=== PATIENT | male | born 1965 | race Caucasian/White ===

== ENCOUNTER → 2018-08-06 17:30 | Outpatient (CLI) | payer OTHER, SELFPAY | PROVIDERS: PCP Family Medicine; Visit Provider Family Medicine | DX: G47.33 Obstructive sleep apnea (adult) (pediatric) (principal); R06.83 Snoring; R53.83 Other fatigue; E66.9 Obesity, unspecified ==

== ENCOUNTER → 2018-11-29 16:12 | Outpatient (CLI) | payer OTHER, SELFPAY ==
--- NOTE | 2018-11-29 16:17 | XR_ITS ---
XR foot LT min 3V HISTORY: ITS.REASON: PAIN OF LEFT HEEL ORDERING PHYSICIAN: Rudolph Gentile MD PATIENT AGE: 53 years COMPARISON: None FINDINGS: No fracture or dislocation. No lytic or blastic change. There is normal mineralization.. The joint spaces are well-preserved. No significant degenerative/arthritic changes. No erosive changes evident. IMPRESSION: Negative, no acute finding
== END ==
PROVIDERS: PCP Family Medicine; Visit Provider Family Medicine
DX: M79.672 Pain in left foot (principal)
CPT/HCPCS: 73630

== ENCOUNTER 2025-02-06 09:16 | Outpatient (CLI) | payer OTHER, SELFPAY ==
--- OUTSIDE RECORDS SUMMARY | 2024-11-27 10:00 | XMS_ITS ---
Author Organization Misa Address 1210 [facility] [address] [place] [id number] Care Team Providers Care Hot Metal Mixer Operator Helper Name Role Phone Rudolph Gentile Primary Care Provider [phone] Allergies No Known Allergies REASON FOR VISIT new patient Medications Medication SIG (Take, Route, Frequency, Duration) Notes Start Date End Date Status Meloxicam 15 MG 1 tab(s) orally once a day Active Allopurinol 100 MG 1 tab(s) orally once a day Active Montelukast Sodium 10 MG 1 tab(s) orally once a day Active Problems Problem Type SNOMED Code ICD Code Onset Dates Problem Status W/U Status Risk Notes Problem Solitary nodule of lung (135553803) Lung nodule (R91.1) Active confirmed Problem Malignant tumor of prostate (291461766) Prostate cancer (C61) Active confirmed Vital Signs Blood pressure systolic 116 mm Hg 11/28/19 25 Blood pressure diastolic 80 mm Hg 025 Heart Rate 60 /min 11/27/2024 Height 70.25 in 11/27/2024 Weight 230.4 lbs 11/27/2024 BMI 32.82 kg/m2 11/27/2024 Encounters Encounter Location Date Provider Diagnosis Misa [address] [place] [facility] 36 [facility] [address] [place] [id number] 11/27/2024 Rudolph Gentile Lung nodule R91.1 ; Prostate cancer C61 ; Chronic gout without tophus, unspecified cause, unspecified site M1A.9XX0 and Chronic allergic rhinitis, unspecified seasonality, unspecified trigger J30.9 Assessments Encounter Date Diagnosis (ICD Code) Assessment Notes Treatment Notes Treatment Clinical Notes Section Notes 11/27/2024 Lung nodule (ICD-10 - R91.1) Need results of recent CT scan of chest, repeat was planned for the end of 2024 11/27/2024 Prostate cancer (ICD-10 - C61) PSA needs to be drawn in about 1 month, need records 11/27/2024 Chronic gout without tophus, unspecified cause, unspecified site (ICD-10 - M1A.9XX0) 11/27/2024 Chronic allergic rhinitis, unspecified seasonality, unspecified trigger (ICD-10 - J30.9) Plan Of Treatment Medication Medication Name Sig Start Date Stop Date Notes Meloxicam 15 MG 1 tab(s) orally once a day Allopurinol 100 MG 1 tab(s) orally once a day Montelukast Sodium 10 MG 1 tab(s) orally once a day Treatment Notes Assessment Notes Lung nodule Need results of rece nt CT scan of chest, repeat was planned for the end of 2024 Prostate cancer PSA needs to be draw n in about 1 month, need records Next Appt Details Follow Up: 4 Weeks nurse vis it, 6 weeks, Reason: Provider Name:Rudolph Lainez , 07/08/2025 10:00:00 AM, [address] [place] [facility] 36 [facility], [address], [place], [place], [id number], Progress Notes * ELIAN PEACEDOB:1965 (60 yo M)Acc No.[id number]:11/27/2024 Progress Notes Patient: ELIAN WOODSON Provider: Stanley Gentile M.D. :1965 A ge:59 Y S ex:Male Date:11/27/2024 Address:[address] [place], [place] [phone] Subjective: * Chief Complaints: * 1 . New patient. * HPI: H PI: 59 year old male presents with c/o Patient is here today for?Pt here to establish care. Pt was previously seen by Jessica Whitman in [place]. Pt states he was dx w ith prostate cancer and needs to have blood drawn today. * ROS: D ERMATOLOGY: no R osiel. n o H jamia. G ASTROENTEROLOGY: no N ausea. n o V omiting. U ROLOGY: no D ifficulty urinating. n o B lood in urine. * Medical History: A llergic Rhinitis, Hyperlipidemia, Gout, Prostate Cancer, Dx: 2024, treated at [facility] in [place], [place], Kidney stones. * Surgical History: P rostatectomy 08/08/2024. * Hospitalization/Major Diagno stic Procedure: D enies Past Hospitalization. * Family History: F ather: alive. M other: alive. 1 brother(s) , 2 sister(s) - healthy. 1 son(s) , 1 daughter(s) - healthy. . * Social History: C URRENT TOBACCO USE: No . C affeine: yes, frequency: coffee. Home smoke detector use: no. Marital Status: Single. Alcohol: No. 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 Pt sts that he still attends meetings regularly. * Medications: T aking Montelukast Sodium 10 MG Tablet 1 tab(s) orally once a day , Taking Meloxicam 15 MG Tablet 1 tab(s) orally once a day , Taking Allopurinol 100 MG Tablet 1 tab(s) orally once a day , Discontinued Clotrimazole 1 % Cream 1 yuridia applied topically 3 times a day , Discontinued ZyrTEC Allergy 10 MG Tablet 1 tab(s) orally once a day , Discontinued Phentermine HCl 15 MG Capsule 1 cap(s) orally once a day (in the morning) , Medication List reviewed and reconciled with the patient * Allergies: N .K.D.A. Objective: * Vitals: W t: 230.4, Temp: 97.7, BP: 116/80, HR: 60, Nurse: pe, Ht: 70.25, BMI:32.82. * Examination: G eneral Examination: General Appearance: N AD. H EENT: u nremarkable.?Oral cavity: n o lesions, mucosa moist and WNL, no erythema. N janelle: s upple, no lymphadenopathy. H eart: R SR. L ungs: c lear to auscultation. S kin: n ormal, no rash. P eripheral pulses: n ormal (2+) bilaterally. E xtremities: n o leg edema.? Assessment: * Assessment: 1. L krissy nodule - R91.1 (Primary) 2 . P rostate cancer - C61 ?3. C hronic gout without tophus, unspecified cause, unspecified site - M1A.9XX0 ?4. C hronic allergic rhinitis, unspecified seasonality, unspecified trigger - J30.9 ? Plan: * Treatment: 2. P rostate cancer Notes: PSA needs to be drawn in about 1 month, need records 3. C hronic gout without tophus, unspecified cause, unspecified site Continue Meloxicam Tablet, 15 MG, 1 tab(s), orally, once a day; C ontinue Allopurinol Tablet, 100 MG, 1 tab(s), orally, once a day. 4. C hronic allergic rhinitis, unspecified seasonality, unspecified trigger Continue Montelukast Sodium Tablet, 10 MG, 1 tab(s), orally, once a day. * Procedure Codes: 1 036F TOBACCO NON-USER, 3074F SYST BP LT 130 MM HG, 3079F DIAST BP 80-89 MM HG * Follow Up: 4 Weeks nurse visit, 6 weeks * Images: Billing Information: * Visit Code: 98960 Office Visit, New Pt., Level 3. * Procedure Codes: 1036F TOBACCO NON-USER. 3074F SYST BP LT 130 MM HG. 3079F DIAST BP 80-89 MM HG. * Electronic signature of Catie Gentile MD on 02/06/2025 at 09:26 AM EDT Sign off status: Pending * Provider: Stanley Gentile M.D. Date: 0 11/27/2024 Generated for Reny helton/Kendra/Adelsoitting on: 09:26 AM EDT History and Physical Notes * HPI (History of Present Illness) Category Sub-Category Detail Notes Category Not es HPI Patient is here today for Pt her e to establish care. Pt was previously seen by Jessica Whitman in [place]. Pt states he was dx with prostate cancer and needs to have blood drawn today Examination Category Sub-Category Detail Notes Category Not es General Examination HEENT: unremarkable Heart: RSR Lungs: clear to auscultatio n Extremities: no leg edema General Appearance: NAD Skin: normal, no rash Neck: supple, no lymphaden opathy Oral cavity: no lesions, mucosa m oist and WNL, no erythema Peripheral pulses: normal (2+) bilatera lly
--- OUTSIDE RECORDS SUMMARY | 2024-12-25 04:50 | XMS_ITS ---
[facility] [address] [place] [address] [facility] [address] [place] [id number] Care Team Providers Care Director Of Labor Relations Name Role Phone Marivel Gentileian Primary Care Provider Allergies No Known Allergies Results Component Value Reference Range Notes P-Comprehensive Metabolic Pa janet (CMP) Reviewed date:12/26/2024 11:35:01 AM Interpretation:Glu 165 Performing Lab: Notes/Report: Test performed by [facility] [address] , [address], [place] [address] Arnie Diaz MD, Lime Kiln Worker CLIA: [id number] Sodium 143 135-145 mmol/L Potassium 4.5 3.5-5.3 mmol/L Chloride 105 97-108 mmol/L CO2 24 20-32 mmol/L Glucose 165 65-99 mg/dL BUN 22 8-23 mg/dL Creatinine 0.87 0.70-1.30 mg/dL Calcium 9.3 8.6-10.4 mg/dL eGFR by Creatinine 98 >59 mL/min/1.73m2 Protein 7.7 6.0-8.3 g/dL Albumin 4.6 3.5-5.3 g/dL Alkaline Phosphatase 68 40-129 IU/L ALT (SGPT) 32 <5-55 IU/L AST (SGOT) 26 <5-46 IU/L Bilirubin, Total 0.4 <0.2-1.2 mg/dL A/G Ratio 1.5 1.1-2.5 P-Lipid Panel Reviewed date:12/26/2024 11:35:01 AM Interpretation:Trigs 332, HDL 28, Chol/HDL 7.11, Non-HDL 171, LDL/HDL 3.7 Performing Lab: Notes/Report: Test performed by [facility] [address] [facility] , [address], [place] [address] Arnie Diaz MD, Lime Kiln Worker CLIA: [id number] Cholesterol 199 <200 mg/dL Triglycerides 332 <150 mg/dL HDL Cholesterol 28 >39 mg/dL Cholesterol / HDL Ratio 7.11 0.00-4.99 Ratio Non-HDL Cholesterol 171 <130 mg/dL LDL Cholesterol (Calculation) 105 <130 mg/dL LDL Cholesterol Levels* Less than 100 mg/dL Optimal 100 to 129 mg/dL Near Optimal/ Above Optimal 130 to 159 mg/dL Borderline High 160 to 189 mg/dL High 190 mg/dL and above Very High * Categories as recommended by the 2004 ATPIII guidelines LDL/HDL Ratio 3.7 <3.3 Ratio LDL Cholesterol Patient History Test Date: 02/28/2022 LDL Results: 116 Units: mg/dL % Change: - Test Date: 12/25/2024 LDL Results: 105 Units: mg/dL % Change: -9% P-PSA Reviewed date:12/26/2024 11:35:01 AM Interpretation:Normal Performing Lab: Notes/Report: Test performed by [facility] [address] , [place] [address] Arnie Diaz MD, Lime Kiln Worker CLIA: [id number] PSA <0.014 <4.00 ng/mL Please note this is an ultrasensitive PSA assay with a lower limit of detection of 0.014 ng/mL. This test is performed by the [place] ECLIA methodology. Values obtained with different assay methods or kits cannot be directly compared. P-TSH reflex to FT4 Reviewed date:12/26/2024 11:35:01 AM Interpretation:Normal Performing Lab: Notes/Report: Test performed by [facility] [address], [place] [address] Arnie Diaz MD, Lime Kiln Worker CLIA: [id number] TSH reflex to FT4 4.26 0.43-5.25 mU/L P-Uric Acid Reviewed date:12/26/2024 11:35:01 AM Interpretation:Normal Performing Lab: Notes/Report: Test performed by [facility] [address], [place] [address] Arnie Diaz MD, Lime Kiln Worker CLIA: [id number] Uric Acid 6.4 3.4-8.0 mg/dL REASON FOR VISIT blood work Medications Medication SIG (Take, Route, Frequency, Duration) Notes Start Date End Date Status Baclofen 10 MG 1 tablet Orally Twice a day As needed 12/02/2024 Active Montelukast Sodium 10 MG 1 tab(s) orally once a day; Duration: 30 days Active Meloxicam 15 MG 1 tab(s) orally once a day; Duration: 30 days Active Allopurinol 100 MG 1 tab(s) orally once a day; Duration: 30 days Active Vital Signs Height 70.25 in 12/25/2024 Encounters Encounter Location Date Provider Diagnosis A-Leobardo 1210 [facility] [address] [place], [place] [id number] 12/25/2024 Rudolph Gentile Prostate cancer C61 ; Pure hypercholesterolemia E78.00 and Chronic gout without tophus, unspecified cause, unspecified site M1A.9XX0 Assessments Encounter Date Diagnosis (ICD Code) Assessment Notes Treatment Notes Treatment Clinical Notes Section Notes 12/25/2024 Prostate cancer (ICD -10 - C61) 12/25/2024 Pure hypercholesterolemia (ICD-10 - E78.00) 12/25/2024 Chronic gout without tophus, unspecified cause, unspecified site (ICD-10 - M1A.9XX0) Plan Of Treatment Next Appt Details Provider Name:Rudolph Lainez ry, 07/08/2025 10:00:00 AM, [address] [place] [facility] 36 [facility], [address] , [place], [place], [phone], Progress Notes * ELIAN PEACEDOB:1965 (60 yo M)Acc No.[id number]:12/25/2024 Patient: ELIAN WOODSON Provider: Stanley Gentile M.D. :1965 A ge:59 Y S ex:Male Date:12/25/2024 Address:[address] [place] [address] Subjective: * Chief Complaints: * 1 . Blood work. * ROS: D ERMATOLOGY: no R osiel. n o H jamia. G ASTROENTEROLOGY: no N ausea. n o V omiting. n o D iarrhea.? U ROLOGY: no D ifficulty urinating. n o B lood in urine. * Medical History: A llergic Rhinitis, Hyperlipidemia, Gout, Prostate Cancer, Dx: 2024, treated at [facility] in [place], [place], Kidney stones. * Medications: T aking Allopurinol 100 MG Tablet 1 tab(s) orally once a day , Taking Meloxicam 15 MG Tablet 1 tab(s) orally once a day , Taking Montelukast Sodium 10 MG Tablet 1 tab(s) orally once a day , Taking Baclofen 10 MG Tablet 1 tablet Orally Twice a day As needed, Medication List reviewed and reconciled with the patient * Allergies: N .K.D.A. Objective: * Vitals: W t: Not Taken - No Medical Need, Temp: Not Taken - No Medical Need, Nurse: Not Taken - No Medical Need, Ht: 70.25. Assessment: * Assessment: 1. P rostate cancer - C61 2 . P ure hypercholesterolemia - E78.00 ? 3 . C hronic gout without tophus, unspecified cause, unspecified site - M1A.9XX0 ? Plan: * Treatment: Value Reference Range P SA <0.014 <4.00 - ng/mL * Rosetta Andrade 12/26/2024 11:3 4:54 AM EDT > See phone encounter 2.?Pure hypercholesterolemia?LAB: P-Comprehensive Metabolic Panel (CMP) (Collection Date & Time - 12/25/2024 08:55 AM)?Glu 165* Value Reference Range A /G Ratio 1.5 1.1-2.5 - * A lbumin 4.6 3.5-5.3 - g/dL * A lkaline Phosphatase 68 40-129 - IU/L * A LT (SGPT) 32 <5-55 - IU/L * A ST (SGOT) 26 <5-46 - IU/L * B ilirubin, Total 0.4 <0.2-1.2 - mg/dL * B UN 22 8-23 - mg/dL * C alcium 9.3 8.6-10.4 - mg/dL * C hloride 105 97-108 - mmol/L * C O2 24 20-32 - mmol/L * C reatinine 0.87 0.70-1.30 - mg/dL * G lucose 165 H 65-99 - mg/dL * P otassium 4.5 3.5-5.3 - mmol/L * S odium 143 135-145 - mmol/L * P rotein 7.7 6.0-8.3 - g/dL * e GFR by Creatinine 98 >59 - mL/min/1.73m2 * Rosetta Andrade 12/26/2024 11:3 4:54 AM EDT > See phone encounter ?LAB: P-Lipid Panel (Collection Date & Time - 12/25/2024 08:55 AM)?Trigs 332, HDL 28, Chol/HDL 7.11, Non-HDL 171, LDL/HDL 3.7* Value Reference Range C holesterol / HDL Ratio 7.11 H 0.00-4.99 - Ratio * C holesterol 199 <200 - mg/dL * H DL Cholesterol 28 L >39 - mg/dL * L DL Cholesterol (Calculation) 105 <130 - mg/d L * L DL/HDL Ratio 3.7 H <3.3 - Ratio * N on-HDL Cholesterol 171 H <130 - mg/dL * T riglycerides 332 H <150 - mg/dL * Rosetta Andrade 12/26/2024 11:3 4:54 AM EDT > See phone encounter ?LAB: P-TSH reflex to FT4 (Collection Date & Time - 12/25/2024 08:55 AM)? Normal* Value Reference Range T SH reflex to FT4 4.26 0.43-5.25 - mU/L * Rosetta Andrade 12/26/2024 11:3 4:54 AM EDT > See phone encounter 3.?Chronic gout without tophus, unspecified cause, unspecified site?LAB: P-Uric Acid (Collection Date & Time - 12/25/2024 08:55 AM)?Normal* Value Reference Range U annette Acid 6.4 3.4-8.0 - mg/dL * Rosetta Andrade 12/26/2024 11:3 4:54 AM EDT > See phone encounter * Images: Billing Information: * Visit Code: * Procedure Codes: * Electronic signature of Catie Gentile MD on 02/06/2025 at 09:25 AM EDT Sign off status: Pending * Provider: Stanley Gentile M.D. Date: 0 12/25/2024 Generated for Reny helton/Kendra/eTransmitting on: 1 09:25 AM EDT
--- OUTSIDE RECORDS SUMMARY | 2025-01-08 05:30 | XMS_ITS ---
Author Organization Misa Address 1210 [facility] [address] [place] [phone] Care Team Providers Care Canal Equipment Mechanic Name Role Phone Rudolph Gentile Primary Care Provider [phone] Allergies No Known Allergies REASON FOR VISIT check up Medications Medication SIG (Take, Route, Frequency, Duration) Notes Start Date End Date Status Meloxicam 15 MG 1 tab(s) orally once a day; Duration: 30 days Active Allopurinol 100 MG 1 tab(s) orally once a day; Duration: 30 days Active Baclofen 10 MG 1 tablet Orally Twice a day As needed 12/02/2024 Active Montelukast Sodium 10 MG 1 tab(s) orally once a day; Duration: 30 days Active Problems Problem Type SNOMED Code ICD Code Onset Dates Problem Status W/U Status Risk Notes Problem Solitary nodule of lung (127360271) Nodule of left lung (R91.1) Active confirmed Vital Signs Blood pressure systolic 132 mm Hg 01/09/20 25 Blood pressure diastolic 80 mm Hg 025 Heart Rate 65 /min 01/08/2025 Height 70.25 in 01/08/2025 Weight 234.8 lbs 01/08/2025 BMI 33.45 kg/m2 01/08/2025 Encounters Encounter Location Date Provider Diagnosis Misa 1210 [facility] [address] [place] [phone] 01/08/2025 Rudolph Gentile Nodule of left lung R91.1 Assessments Encounter Date Diagnosis (ICD Code) Assessment Notes Treatment Notes Treatment Clinical Notes Section Notes 01/08/2025 Nodule of left lung (ICD-10 - R91.1) Plan Of Treatment Pending Test Test Name Order Date CT Scan : Chest with IV contrast 025 Next Appt Details Follow Up: via phone to repo rt test results,6 Months, Reason: Provider Name:Rudolph Lainez ry, 07/08/2025 10:00:00 AM, [address], [place], [place], [phone], Progress Notes * ELIAN PEACEDOB:1965 (60 yo M)Acc No.[id number]:01/08/2025 Progress Notes Patient: ELIAN WOODSON Provider: Stanley Gentile M.D. :1965 A ge:60 Y S ex:Male Date:01/08/2025 Address:[address] [place], [place] [phone] Subjective: * Chief Complaints: * 1 . Check up. * HPI: H PI: 60 year old male presents with c/o Here for follow up on: P t here for follow up on 10/07/2024 CT Nodule on left lung. Pt states he was here two weeks ago for PSA.. * Medical History: A llergic Rhinitis, Hyperlipidemia, Gout, Prostate Cancer, Dx: 2024, treated at [facility] in [place], [place], Kidney stones. * Surgical History: P [...] attends meetings regularly. * Medications: T aking Allopurinol 100 MG [...] N .K.D.A. Objective: * Vitals: W t: 234.8, Temp: 97.7, BP: 132/80, HR: 65, Nurse: SF, Ht: 70.25, BMI:33.45. * Examination: G eneral Examination: General Appearance: N AD. Assessment: * Assessment: 1. N odule of left lung - R91.1 (Primary) Plan: * Treatment: * Procedure Codes: 1 036F TOBACCO NON-USER, 3075F SYST BP GE 130 - 139MM HG, 3079F DIAST BP 80-89 MM HG * Follow Up: v ia phone to report test results,6 Months * Images: Billing Information: * Visit Code: 58680 Office Visit, Est Pt., Level 3. * Procedure Codes: 1036F TOBACCO NON-USER. 3075F SYST BP GE 130 - 139MM HG. 3079F DIAST BP 80-89 MM HG. * Electronic signature of Catie Gentile MD on 02/06/2025 at 09:26 AM EDT Sign off status: Pending * Provider: Stanley Gentile M.D. Date: 0 01/08/2025 Generated for Reny helton/Kendra/Adelsoitting on: 1 09:26 AM EDT History and Physical Notes * HPI (History of Present Illness) Category Sub-Category Detail Notes Category Not es HPI Here for follow up on: Pt here f or follow up on 10/07/2024 CT Nodule on left lung. Pt states he was here two weeks ago for PSA. Examination Category Sub-Category Detail Notes Category Not es General Examination General Appearance: NAD
--- OUTSIDE RECORDS SUMMARY | 2025-01-21 11:08 | XMS_ITS ---
Author Organization Maki Address 1210 [facility] 36 [facility] [address] [place] [phone] Care Team Providers Care Mine Motor Operator Name Role Phone Rudolph Gentile Primary Care Provider REASON FOR VISIT due colonoscopy Encounters Encounter Location Date Provider Diagnosis Misa [address] [place] [phone] 01/21/2025 Rudolph Gentile Colon cancer screeni ng Z12.11 Assessments Encounter Date Diagnosis (ICD Code) Assessment Notes Treatment Notes Treatment Clinical Notes Section Notes 01/21/2025 Colon cancer screening (ICD-10 - Z12.11) Plan Of Treatment Pending Test Test Name Order Date colonoscopy 01/21/2025 Next Appt Details Provider Name:Rudolph Lainez ry, 07/08/2025 10:00:00 AM, [address], [place], [phone], Progress Notes * ELIAN PEACEDOB:1965 (60 yo M)Acc No.[id number]:01/21/2025 Patient: ELAIN WOODSON :1965 A ge:60 Y S ex:Male Address:[address] [place] [address] [place], [address] Subjective: * Chief Complaints: * D ue colonoscopy * Medical History: * Surgical History: * Hospitalization/Major Diagno stic Procedure: * Medications: Objective: * Vitals: * Physical Examination: Assessment: * Assessment: 1. C olon cancer screening - Z12.11 (Primary) Plan: * Treatment: * Procedure Codes: * true * Date: Generated for Reny helton/Kendra/Adelina on: 09:25 AM EDT
--- NOTE | 2025-02-06 09:25 | CT_ITS ---
FINAL REPORT TECHNIQUE: Thin section axial images were obtained from the thoracic inlet through the upper abdomen after intravenous contrast injection. Reconstruction images were obtained from the axial data. Exam was performed using dose reduction technique. CLINICAL HISTORY: LT LUNG NODULE lung nodule seen on ct abd/pel on 10/07/2024 please compare COMPARISON: 10/07/2024 FINDINGS: There is no mediastinal, hilar, or axillary lymphadenopathy. There is no pleural or pericardial effusion. There is elevation of the right hemidiaphragm with chronic right lower lobe atelectasis. A stable 5 mm left lower lobe nodule is noted on series 5, image 55. Difference in size is likely due to slice selection. Remainder of the lungs are clear. Limited evaluation of the upper abdomen demonstrates diffuse fatty infiltration. A stable left adrenal nodule is noted. No acute osseous abnormality. IMPRESSION: Stable 5 mm left lower lobe pulmonary nodule. Continued follow-up recommended. Next interval follow-up in 6-12 months. Stable chronic elevation of the right hemidiaphragm with right lower lobe atelectasis. Reviewed, Interpreted and Dictated by Carmen Brooks MD Transcribed by Johana Carolina Authenticated and [facility]
--- OUTSIDE RECORDS SUMMARY | 2025-02-06 09:26 | XMS_ITS | Patient Health Record ---
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 [address] [facility] [address], [place] [address] Arnie Diaz MD, Guest Service Agent CLIA: [id number] Cholesterol 199 <200 mg/dL Triglycerides 332 <150 [...] Interpretation:Normal Performing Lab: Notes/Report: Test performed by [facility] [address] , [facility] [address] Arnie Diaz MD, Guest Service Agent CLIA: [id number] PSA <0.014 <4.00 ng/mL Please note this is an ultrasensitive PSA assay with a lower limit of detection of 0.014 ng/mL. This test is performed by the [place] ECLIA methodology. Values obtained with different assay methods or kits cannot be directly compared. P-TSH reflex to FT4 Reviewed date:12/26/2024 11:35:01 AM Interpretation:Normal Performing Lab: Notes/Report: Test performed by [facility] [address] , [place] [address] Arnie Diaz MD, Guest Service Agent CLIA: [id number] TSH reflex to FT4 4.26 0.43-5.25 mU/L P-Uric Acid Reviewed date:12/26/2024 11:35:01 AM Interpretation:Normal Performing Lab: Notes/Report: Test performed by [facility] [address] , [address], [place] [address] Arnie Diaz MD, Guest Service Agent CLIA: [id number] Uric Acid 6.4 3.4-8.0 mg/dL OBINNA Reviewed date:11/21/2024 11:15:29 AM Interpretation: Performing Lab: Notes/Report: Reason For Referral No Information Medications Medication SIG (Take, Route, Frequency, Duration) Notes Start Date End Date Status Meloxicam 15 MG 1 tab(s) orally once a day; Duration: 30 days Active Allopurinol 100 MG 1 tab(s) orally once a day; Duration: 30 days Active Baclofen 10 MG 1 tablet Orally Twice a day Active Montelukast Sodium 10 MG 1 tab(s) orally once a day; Duration: 30 days Active Problems Problem Type SNOMED Code ICD Code Onset Dates Problem Status W/U Status Risk Notes Problem Solitary nodule of lung (241264682) Lung nodule (R91.1) Active confirmed Problem Solitary nodule of lung (631006637) Nodule of left lung (R91.1) Active confirmed Problem Primary generalised osteoarthritis (329270449) Primary generalized (osteo)arthritis (M15.0) Active confirmed Problem Malignant tumor of prostate (743359485) Prostate cancer (C61) Active confirmed Problem Body mass index 30.0 0 to 34.99 (700458933422573) BMI 34.0-34.9,adult (Z68.34) Active confirmed Problem Chronic gouty arthritis (64528286) Chronic gout without tophus, unspecified cause, unspecified site (M1A.9XX0) Active confirmed Problem Pure hypercholesterolemia (228450215) Pure hypercholesterolemia (E78.00) Active confirmed Problem Allergic rhinitis (88338760) Chronic allergic rhinitis, unspecified seasonality, unspecified trigger (J30.9) Active confirmed Problem Obesity (688717303) Non morbid o besity (E66.9) Active confirmed Vital Signs Heart Rate 65 /min 01/08/2025 Blood pressure diastolic 80 mm Hg 01/08/2025 Height 70.25 in 01/08/2025 Blood pressure systolic 132 mm Hg 01/08/2025 Weight 234.8 lbs 01/08/2025 BMI 33.45 kg/m2 01/08/2025 Encounters Encounter Location Date Provider Diagnosis [facility] [address] [facility] [address] [place], [place] [id number] 11/27/2024 Rudolph Simon Lung nodule R91.1 ; Prostate cancer C61 ; Chronic gout without tophus, unspecified cause, unspecified site M1A.9XX0 and Chronic allergic rhinitis, unspecified seasonality, unspecified trigger J30.9 [facility] [address] [facility] [address] [place], [place] [id number] 12/25/2024 Rudolph Simon Prostate cancer C61 ; Pure hypercholesterolemia E78.00 and Chronic gout without tophus, unspecified cause, unspecified site M1A.9XX0 [facility] [address] [facility] [address] [place], [place] [id number] 01/08/2025 Rudolph Simon Nodule of left lung R91.1 [facility] [address] [facility] [address] [place] [id number] 12/02/2024 Rudolph Simon Chronic gout without tophus, unspecified cause, unspecified site M1A.9XX0 and Chronic allergic rhinitis, unspecified seasonality, unspecified trigger J30.9 [facility] [address] [place] [id number] 12/16/2024 Rudolph Simon [facility] [address] [place] [id number] 12/26/2024 Rudolph Simon [facility] [address] [place] [id number] 01/21/2025 Rudolph Simon Colon cancer screeni ng Z12.11 Assessments Encounter Date Diagnosis (ICD Code) Assessment Notes Treatment Notes Treatment Clinical Notes Section Notes 11/27/2024 Lung nodule (ICD-10 - R91.1) Need results of recent CT scan of chest, repeat was planned for the end of 2024 11/27/2024 Prostate cancer (ICD -10 - C61) PSA needs to be drawn in about 1 month, need records 12/02/2024 Chronic gout without tophus, unspecified cause, unspecified site (ICD-10 - M1A.9XX0) 12/25/2024 Prostate cancer (ICD -10 - C61) 01/08/2025 Nodule of left lung (ICD-10 - R91.1) 01/21/2025 Colon cancer screeni ng (ICD-10 - Z12.11) 12/02/2024 Chronic allergic rhinitis, unspecified seasonality, unspecified trigger (ICD-10 - J30.9) 12/25/2024 Pure hypercholesterolemia (ICD-10 - E78.00) 11/27/2024 Chronic gout without tophus, unspecified cause, unspecified site (ICD-10 - M1A.9XX0) 11/27/2024 Chronic allergic rhinitis, unspecified seasonality, unspecified trigger (ICD-10 - J30.9) 12/25/2024 Chronic gout without tophus, unspecified cause, unspecified site (ICD-10 - M1A.9XX0) Plan Of Treatment Pending Test Test Name Order Date Lipid Profile 04/30/2020 Prostate Specific Antigen (PSA) 04/30/19 21 Uric acid 04/30/2020 colonoscopy 01/21/2025 CMP 04/30/2020 CT Scan : Chest with IV contrast 025 Next Appt Details Provider Name:Rudolph small, 07/08/2025 10:00:00 AM, [address], [address], [place], [place], [id number], Insurance Providers Payer Name Payer Address Payer Phone Subscriber Number Group Number Insured Name Patient Relationship to Insured Coverage Start Date Coverage End Date [employer] [facility] [address] [place], [place] [id number] ELIAN PEACE Self - patient is the insured Medical (General) History Medical History History ICD Code Allergic Rhinitis Hyperlipidemia Gout Prostate Cancer, Dx: 2024, t [facility]ated at [facility] in [place], [place] kidney stones Surgical History Surgery Date(Month/Year) Prostatectomy 08/08/2024
[2025-02-06 09:57] LABS: Blood Urea Nitrogen 17 mg/dl (9-20); Creatinine,Serum 0.70 mg/dl (0.66-1.25); Estimated Glomerular Filt Rate 114 ml/min (>60); GFR (African American) 138 ML/MIN (>60)
[2025-02-06] MEDS: SODIUM CHLORIDE 0.9% 10ML SYR (RAD ONLY) 10 ML IV (10:28)
[2025-02-06] MEDS: IOPAMIDOL-370 (76%);100ML BOTTLE 75 ML IV (10:28)
== END 2025-02-06 23:59 | disposition home or self-care (01) ==
LOC: RAD 09:18
PROVIDERS: PCP Family Medicine; Visit Provider Family Medicine
DX: R91.1 Solitary pulmonary nodule (principal); J98.11 Atelectasis; J98.6 Disorders of diaphragm
CPT/HCPCS: 36415; 71260; 82565; 84520; Q9967

== ENCOUNTER 2025-04-10 06:07 | Day surgery (SDC) | payer OTHER, SELFPAY ==
--- NOTE | 2025-04-07 06:56 | EXP.HP ---
History of Present Illness *Admission Date: 04/10/25 *History of present illness: Mr. Resendiz is a 60-year-old gentleman who is here for screening/surveillance colonoscopy secondary to a personal history of adenomatous colon polyps. He did have initial screening with me in August 2017 and had 13 colon polyps (ranging in size from 3 to 13 mm) which were removed (tubular adenomas x 9, small serrated adenomas x 3 and hyperplastic polyp x 1). The patient did not follow-up for 3-year colonoscopy and had moved to [facility] for 4 years but has moved back. The patient was recently seen by Dr. Rudolph Gentile MD and had a cough and was treated with antibiotics. He also was passing mucus with his bowel movements. He does state that this has resolved for the last 3 days. He reports no abdominal pain, weight loss, rectal bleeding or family history of colon cancer. He does have some longstanding bowel irregularity with constipation followed by loose stools. Since his prostatectomy in July 2024 he has had primarily hard stools. His recent hemoglobin hematocrit were normal at 15.5 and 45.3. The examination is deemed medically necessary for screening/surveillance colonoscopy. The patient has been seen, interviewed and examined prior to the procedure by both myself and the anesthesia provider. [facility] Disclaimer: The information contained in this section may have been updated after the patient was seen, as this information can be updated by other users. Medical History History of prostate cancer Gout Surgical History H/O prostatectomy Family History Other Family history non-contributory Social History (Updated 04/10/25 @ 06:26 by Aliza Musa RN) Smoking Status: Former smoker alcohol intake: never substance use type: denies use current occupational status: retired Travel in the last 8 weeks?: None Have you lived/traveled outside US in past 30 days?: No Contact w/someone who lives/traveled outside US past 30 days?: No Exposure to someone with infectious disease in past 14 days?: No Do you have a fever (greater than 100.4 F or 38 C)?: No Have you tested positive for COVID-19?: No Exposed to someone with COVID-19 in past 14 days?: No Do you have a sore throat?: No Do you have a cough?: No Do you have any weakness?: No Do you have any diarrhea?: No Are you experiencing any unusual bleeding?: No Do you have any muscle aches/pain?: No Do you have any abdominal pain?: No Are you experiencing loss of taste or smell?: No Review of Systems Review of Systems Review of systems (narrative): Negative *Cardiovascular Comments: Negative *Gastrointestinal Comments: Negative *Genitourinary Comments: Negative *Musculoskeletal Comments: Negative *Neurologic Comments: Negative Meds Home Medications and Allergies Home Medications ?Medication ?Instructions ?Recorded ?Confirmed ?Type montelukast 10 mg tablet 10 mg PO PM allergies 08/28/17 04/10/25 History allopurinol 100 mg tablet 100 mg PO DAILY 02/11/25 04/10/25 History baclofen 10 mg tablet 10 mg PO DAILY 02/11/25 04/10/25 History meloxicam 15 mg tablet 15 mg PO DAILY 02/11/25 04/10/25 History sodium sul 1.479 gram-potas ch See Rx Instructions PO PER PKG DIR 03/27/25 04/10/25 Rx 0.188 gram-magnes sul 0.225 gram colonscopy #24 tabs tablet (Sutab) New Prescriptions to Start Prescriptions: Allergies Allergy/AdvReac Type Severity Reaction Status Date / Time No Known Allergies Allergy Verified 04/10/25 06:16 Exam *Routine HEENT Exam Head: Present normocephalic Eye: Present EOMI and PERRL ENT: Present mucous membranes moist *Routine Neck Exam Neck: Present supple *Routine Respiratory Exam Respiratory: Present CTA bilaterally *Routine Cardiovascular Exam Cardiovascular: Present RRR *Routine Abdominal Exam Abdominal: Present soft and normoactive bowel sounds; Absent tenderness *Routine Rectal Exam Rectal:: deferred *Routine Genitalia Exam Genitalia:: deferred *Routine Extremities Exam Extremities: Absent cyanosis, clubbing or edema *Routine Skin Exam Skin: Present warm; Absent rash *Routine Neurological Exam Neurological: Present alert and oriented X3 Assessment and Plan *Assessment and plan (1) Personal history of adenomatous and serrated colon polyps: Status: Acute Category: Medical Code(s): Z86.0101 - Personal history of adenomatous and serrated colon polyps (2) Screening for colon cancer: Status: Acute Category: Medical Code(s): Z12.11 - Encounter for screening for malignant neoplasm of colon Plan A/P: 1. Personal history of adenomatous colon polyps is the preprocedural diagnosis. The patient will be anesthetized/sedated using MAC sedation. The patient has been seen and examined. Cardiac and lung assessment prior to the examination is stable. Proceed with planned screening/surveillance colonoscopy.
[2025-04-09 11:58] VITALS: BMI 33.6
[2025-04-10 06:25] VITALS: BP 154/99; PULSE 70; RESP 18; TEMP 36.6; O2SAT 96; BMI 33.7
[2025-04-10] MEDS: LACTATED RINGERS 1000ML 1,000 ML 50 ML IV (06:35)
--- NOTE | 2025-04-10 06:46 | P.PCN_ITS ---
[facility] Procedure Note Date: 04/10/25 Time: 07:48 Procedure Note:: Colonoscopy Procedure Report: Colonoscopy with cold snare polypectomy Endoscopist: Faheem Novak II, MD Referring physician: Rudolph Gentile MD Date of Procedure: April 10, 2025 Equipment: Olympus [id number] adult colonoscope Sedation: MAC sedation Indication: Mr. Resendiz is a 60-year-old gentleman who is here for screening/surveillance colonoscopy secondary to a personal history of adenomatous colon polyps. He did have initial screening with [facility] in August 2017 and had 13 colon polyps (ranging in size from 3 to 13 mm) which were removed (tubular adenomas x 9, small serrated adenomas x 3 and hyperplastic polyp x 1). The patient did not follow-up for 3-year colonoscopy and had moved to [facility] for 4 years but has moved back. The patient was recently seen by Dr. Rudolph Gentile MD and had a cough and was treated with antibiotics. He also was passing mucus with his bowel movements. He does state that this has resolved for the last 3 days. He reports no abdominal pain, weight loss, rectal bleeding or family history of colon cancer. He does have some longstanding bowel irregularity with constipation followed by loose stools. Since his prostatectomy in July 2024 he has had primarily hard stools. His recent hemoglobin hematocrit were normal at 15.5 and 45.3. The examination is deemed medically necessary for screening/surveillance colonoscopy. Procedure: Prior to the procedure, a history and physical exam was performed, and patient's medications and allergies were reviewed. The risks, benefits and alternatives of the sedation and procedure were discussed with the patient. All questions were answered and informed consent was obtained. The patient was brought to the procedure room. Patient identification and proposed procedure were verified by the physician and the nurse. The patient was placed in a left lateral decubitus position and the scope was passed under direct vision. Throughout the procedure, the patient's blood pressure, pulse, and oxygen saturations were mo nitored continuously. The colonoscopy was accomplished without difficulty. The patient tolerated the procedure well. Findings: On digital rectal examination there was normal rectal tone. There were no external hemorrhoids. There was no palpable prostate. The colonoscope was introduced through the anal canal to the rectum and advanced to the cecum. The ileocecal valve and appendiceal orifice were identified. The scope was advanced a short distance into the ileum which appeared grossly normal. The scope was then withdrawn into the colon. There were 3 diminutive polyps (descending x 3 (3, 3 and 4 mm)) which were all removed via cold snare polypectomy. The remaining cecum, ascending, transverse, descending, sigmoid and rectum were grossly normal. There were no other mucosal abnormalities identified. Upon retroflexion within the rectum there were grade 1-2 internal hemorrhoids. The preparation was fair and slightly poor with [place] Preparation Score of 6 out of 9. There was a lot of yellow liquid and some plant residue. The cecal time was 15 minutes. Impression: 1. Diminutive colonic polyps x 3 Plan: I will follow-up the polyp histology and recommend repeat screening/surveillance colonoscopy again in 5 years.
--- NOTE | 2025-04-10 06:58 | EXP.ANES.CKL ---
[facility] Disclaimer: The information contained in this section may have been updated after the patient was seen, as this information can be updated by other users. Medical History History of prostate cancer Gout Surgical History H/O prostatectomy Family History Other Family history non-contributory Social History (Updated 04/10/25 @ 06:26 by Aliza Musa RN) Smoking Status: Former smoker alcohol intake: never substance use type: denies use current occupational status: retired Travel in the last 8 weeks?: None Have you lived/traveled outside US in past 30 days?: No Contact w/someone who lives/traveled outside US past 30 days?: No Exposure to someone with infectious disease in past 14 days?: No Do you have a fever (greater than 100.4 F or 38 C)?: No Have you tested positive for COVID-19?: No Exposed to someone with COVID-19 in past 14 days?: No Do you have a sore throat?: No Do you have a cough?: No Do you have any weakness?: No Do you have any diarrhea?: No Are you experiencing any unusual bleeding?: No Do you have any muscle aches/pain?: No Do you have any abdominal pain?: No Are you experiencing loss of taste or smell?: No [facility] Anesthesia Checklist Patient Identification Patient Identification: Arm Band and Family Structural Data Admitted From: Home Planned Operative Procedure/s: Colonoscopy Consent for Planned Operative Procedure(s) Verified: Yes Verified Documents: Surgical Consent and History and Physical NPO Status Verified Time NPO: 00:00 Additional verifications Anesthesia Reactions: No Hx Blood Transfusions: No Blood Transfusion Reaction: No Cephalosporin Allergy: No Previous Colonoscopy: Yes Airway Assessment Mallampati Score:: Class II C-Spine Mobility Assessed: Yes TMJ Mobility Assessed: Yes Dentition: Good Dentition Neurological Assessment Level of Consciousness: Awake, Alert, Appropriate and Follows Commands Hx Seizures: No Numbness or tingling in extremities: No Anesthesia Plan ASA Class: II Anesthesia Type: MAC
[2025-04-10 07:50] VITALS: BP 120/72; PULSE 77; RESP 16; TEMP 36.3; O2SAT 93
[2025-04-10 08:00] VITALS: BP 117/79; PULSE 71; RESP 16; O2SAT 96
[2025-04-10 08:10] VITALS: BP 120/77; PULSE 67; RESP 18; O2SAT 96
[2025-04-10 08:20] VITALS: BP 130/79; PULSE 69; RESP 18; O2SAT 95
[2025-04-10 08:40] VITALS: BP 140/80; PULSE 68; RESP 18; TEMP 36.3; O2SAT 95
== END 2025-04-10 08:40 | disposition home or self-care (01) ==
PROVIDERS: PCP Family Medicine; Visit Provider Internal Medicine Gastroenterology
PROC: 0DJD8ZZ Inspection of Lower Intestinal Tract, Via Natural or Artificial Opening Endoscopic (ICD-10-PCS; CPT 45378; principal; 2025-04-10 07:30)
DX: Z12.11 Encounter for screening for malignant neoplasm of colon (principal); D12.4 Benign neoplasm of descending colon; R19.4 Change in bowel habit; M10.9 Gout, unspecified; Z86.0102 Personal history of hyperplastic colon polyps; Z86.0101 Personal history of adenomatous and serrated colon polyps; Z85.46 Personal history of malignant neoplasm of prostate; Z90.79 Acquired absence of other genital organ(s); Z87.891 Personal history of nicotine dependence; Z79.899 Other long term (current) drug therapy
CPT/HCPCS: 45385; J2003; J2704; J7120